=== PATIENT | male | born 1950 ===

== ENCOUNTER 2018-01-14 09:58 | Outpatient (CLI) | payer MEDICARE, OTHER ==
--- NOTE | 2018-01-14 12:21 | RAD ---
TWO VIEWS CHEST: Date: 01-14-18 Comparison: 11-29-11 History: Tobacco abuse. FINDINGS: No pneumothorax, pleural fluid, focal consolidation, or alveolar edema. Heart and mediastinal contour s are stable. There is multilevel degenerative change noted within the thoracic spine. There is post- surgical cervical spine hardware, incompletely assessed. IMPRESSION: No acute findings. POS: [facility]
== END 2018-01-14 09:59 | disposition home or self-care (01) ==
LOC: MADRAD 09:58
PROVIDERS: ATTEND Family Medicine
DX: F17.210 Nicotine dependence, cigarettes, uncomplicated (principal)
CPT/HCPCS: 71046